=== PATIENT | male | born 1930 | race Caucasian/White ===

== ENCOUNTER 2018-03-22 18:02 | Inpatient (IN) | payer OTHER ==
[~2018-03-22] VITALS: Ht 182.9 cm; Wt 90.8 kg
[~2018-03-22 18:02] MED LIST: ALEN70TA5 PO; AMLO2.5T PO; ATOR40TA78 PO; CALC1TAB84 PO; CLOP75TA PO; FENO145T30 PO; IRBE300T16 PO; MAGN300C PO; METO50TA82 PO; MULT-257 PO; PRAV40TA2 PO; VIT1CAPS10 PO; [UNRECOGNIZED DRUG - OTHER] PO
[2018-03-22] MEDS ORDERED: SODIUM CHLORIDE FLUSH 10ML SYR IVF ONE (19:00)
[2018-03-22 19:04] LABS: BASOPHILS # (AUTO) 0.02 x10^3/uL (0-0.1); BASOPHILS % (AUTO) 0 % (0-1); EOSINOPHILS # (AUTO) 0.23 x10^3/uL (0-0.4); EOSINOPHILS % (AUTO) 2 % (1-7); LYMPHOCYTES # (AUTO) 0.87 x10^3/uL (1-3.4); LYMPHOCYTES % (AUTO) 7 % (22-44); MD NO; MEAN CORPUSCULAR HEMOGLOBIN 33.8 pg (27.5-34.5); MEAN CORPUSCULAR HGB CONC 34.1 g/dL (33.2-36.2); MEAN CORPUSCULAR VOLUME 99.2 fL (81-97); MEAN PLATELET VOLUME 8.3 fL (7.4-10.4); MONOCYTES % (AUTO) 7 % (2-9); NEUTROPHILS # (AUTO) 10.27 x10^3/uL (1.8-6.8); NEUTROPHILS % (AUTO) 84 % (42-75); PLATELET COUNT 185 x10^3/uL (130-400); RED BLOOD COUNT 4.06 x10^6/uL (4.38-5.82); RED CELL DISTRIBUTION WIDTH 17.7 % (9.4-14.8)
[2018-03-22 19:10] LABS: ALBUMIN 3.8 g/dL (3.4-5.0); ANION GAP 8 mmol/L (5-15); CALCIUM 9.2 mg/dL (8.5-10.1); CHLORIDE 102 mmol/L (98-107); CREATININE 1.68 mg/dL (0.7-1.3)
[2018-03-22 19:14] LABS: TROPONIN I < 0.015 ng/mL (0.000-0.045)
[2018-03-22] MEDS ORDERED: POLYETHYLENE GLYCOL 17 GM PACKET PO PRN (20:30)
[2018-03-22] MEDS ORDERED: BISACODYL 10 MG SUPP PR PRN (20:30)
[2018-03-22] MEDS ORDERED: ACETAMINOPHEN 325 MG TABLET PO PRN (20:30)
[2018-03-22] MEDS ORDERED: ALENDRONATE 70 MG TABLET PO SCH (20:30)
[2018-03-22] MEDS ORDERED: ONDANSETRON 2MG/ML, 2ML IVPush PRN (20:30)
[2018-03-22] MEDS: HEPARIN 5,000 UNITS/ML, 1ML SQ SCH (20:30)
[2018-03-22 20:44] VITALS: BP 174/69
[2018-03-22] MEDS: ATORVASTATIN 40 MG TABLET PO SCH (21:00)
[2018-03-22] MEDS: METOPROLOL TARTRATE 50 MG TABLET PO SCH (21:00)
[2018-03-22 21:02] LABS: FOLATE LEVEL > 20.0 ng/mL (3.1-17.5)
[2018-03-22] MEDS: AMLODIPINE 2.5 MG TABLET PO SCH (22:36)
[2018-03-22] MEDS: SODIUM CHLORIDE 0.9% 1,000 ML IV SCH (22:42)
[2018-03-23 01:18] VITALS: BP 139/62
[2018-03-23] MEDS: HEPARIN 5,000 UNITS/ML, 1ML SQ SCH ×4 (04:30→20:50)
[2018-03-23 04:52] LABS: BASOPHILS # (AUTO) 0.01 x10^3/uL (0-0.1); BASOPHILS % (AUTO) 0 % (0-1); EOSINOPHILS # (AUTO) 0.09 x10^3/uL (0-0.4); EOSINOPHILS % (AUTO) 1 % (1-7); LYMPHOCYTES # (AUTO) 0.65 x10^3/uL (1-3.4); LYMPHOCYTES % (AUTO) 8 % (22-44); MD NO; MEAN CORPUSCULAR HEMOGLOBIN 33.1 pg (27.5-34.5); MEAN CORPUSCULAR HGB CONC 33.4 g/dL (33.2-36.2); MEAN CORPUSCULAR VOLUME 99.1 fL (81-97); MONOCYTES # (AUTO) 0.61 x10^3/uL (0.2-0.8); MONOCYTES % (AUTO) 8 % (2-9); NEUTROPHILS # (AUTO) 6.63 x10^3/uL (1.8-6.8); NEUTROPHILS % (AUTO) 83 % (42-75); PLATELET COUNT 157 x10^3/uL (130-400); RED BLOOD COUNT 3.63 x10^6/uL (4.38-5.82); RED CELL DISTRIBUTION WIDTH 17.6 % (9.4-14.8)
[2018-03-23 05:00] LABS: CHLORIDE 106 mmol/L (98-107)
[2018-03-23 05:07] LABS: ALANINE AMINOTRANSFERASE 17 U/L (12-78); ALBUMIN 3.2 g/dL (3.4-5.0); ALKALINE PHOSPHATASE 51 U/L (45-117); ANION GAP 5 mmol/L (5-15); BILIRUBIN,TOTAL 0.9 mg/dL (0.2-1.0); CALCIUM 9.1 mg/dL (8.5-10.1)
[2018-03-23] MEDS: SODIUM CHLORIDE 0.9% 1,000 ML IV SCH (06:16)
[2018-03-23] MEDS ORDERED: GABA300C10 PO (06:35)
[2018-03-23 07:15] VITALS: BP 133/51
[2018-03-23] MEDS: LEVOTHYROXINE 50 MCG TABLET PO SCH (07:34)
[2018-03-23] MEDS: MULTIVITAMIN 1 TABLET PO SCH (07:35)
[2018-03-23] MEDS: AMLODIPINE 2.5 MG TABLET PO SCH ×2 (07:35→20:49)
[2018-03-23] MEDS: IRBESARTAN 300 MG TABLET PO SCH (07:35)
[2018-03-23] MEDS: CALCIUM/VITAMIN D3 250-125 TABLET PO SCH (07:35)
[2018-03-23] MEDS: CLOPIDOGREL 75 MG TABLET PO SCH (07:35)
[2018-03-23] MEDS: MAGNESIUM OXIDE 400 MG TABLET PO SCH (07:35)
[2018-03-23] MEDS: SENNA/DOCUSATE TABLET PO SCH (07:36)
[2018-03-23] MEDS ORDERED: TEMPLATE NON-FORMULARY MED. (Vit C/Vit E/Lutein/Min/Omega-3** (Ocuvite Softgel**) 1 TAB) PO SCH (09:00)
[2018-03-23] MEDS: GABAPENTIN 300 MG CAPSULE PO SCH (11:05)
[2018-03-23 12:55] VITALS: BP 105/52
[2018-03-23] MEDS: GUAIFENESIN 200 MG TABLET PO SCH ×2 (16:20→20:50)
[2018-03-23 19:22] VITALS: BP 125/54
[2018-03-23] MEDS: ATORVASTATIN 40 MG TABLET PO SCH (20:49)
[2018-03-23] MEDS: METOPROLOL TARTRATE 50 MG TABLET PO SCH (20:49)
[2018-03-24 01:37] VITALS: BP 116/60
[2018-03-24 04:40] LABS: BASOPHILS # (AUTO) 0.01 x10^3/uL (0-0.1); BASOPHILS % (AUTO) 0 % (0-1); EOSINOPHILS # (AUTO) 0.11 x10^3/uL (0-0.4); EOSINOPHILS % (AUTO) 1 % (1-7); LYMPHOCYTES # (AUTO) 0.63 x10^3/uL (1-3.4); LYMPHOCYTES % (AUTO) 8 % (22-44); MD NO; MEAN CORPUSCULAR HEMOGLOBIN 32.9 pg (27.5-34.5); MEAN CORPUSCULAR HGB CONC 33.2 g/dL (33.2-36.2); MEAN CORPUSCULAR VOLUME 99.1 fL (81-97); MEAN PLATELET VOLUME 8.2 fL (7.4-10.4); MONOCYTES # (AUTO) 0.64 x10^3/uL (0.2-0.8); MONOCYTES % (AUTO) 8 % (2-9); NEUTROPHILS # (AUTO) 6.44 x10^3/uL (1.8-6.8); NEUTROPHILS % (AUTO) 82 % (42-75); PLATELET COUNT 161 x10^3/uL (130-400); RED BLOOD COUNT 3.68 x10^6/uL (4.38-5.82); RED CELL DISTRIBUTION WIDTH 17.9 % (9.4-14.8)
[2018-03-24 04:44] LABS: ANION GAP 5 mmol/L (5-15); CALCIUM 8.9 mg/dL (8.5-10.1); CHLORIDE 107 mmol/L (98-107)
[2018-03-24 04:57] LABS: CREATININE 1.44 mg/dL (0.7-1.3)
[2018-03-24] MEDS: GUAIFENESIN 200 MG TABLET PO SCH ×3 (05:52→16:05)
[2018-03-24] MEDS: LEVOTHYROXINE 50 MCG TABLET PO SCH (05:52)
[2018-03-24 07:00] VITALS: BP 137/60
[2018-03-24] MEDS: MULTIVITAMIN 1 TABLET PO SCH (08:39)
[2018-03-24] MEDS: CALCIUM/VITAMIN D3 250-125 TABLET PO SCH (08:39)
[2018-03-24] MEDS: AMLODIPINE 2.5 MG TABLET PO SCH (08:39)
[2018-03-24] MEDS: GABAPENTIN 300 MG CAPSULE PO SCH (08:39)
[2018-03-24] MEDS: CLOPIDOGREL 75 MG TABLET PO SCH (08:39)
[2018-03-24] MEDS: SENNA/DOCUSATE TABLET PO SCH (08:40)
[2018-03-24] MEDS: MAGNESIUM OXIDE 400 MG TABLET PO SCH (08:40)
[2018-03-24] MEDS: IRBESARTAN 300 MG TABLET PO SCH (08:40)
[2018-03-24] MEDS: HEPARIN 5,000 UNITS/ML, 1ML SQ SCH (11:08)
[2018-03-24] MEDS ORDERED: DOXYCYCLINE 100MG TABLET PO SCH (13:00)
[2018-03-24 13:53] VITALS: BP 136/49
[2018-03-24] MEDS ORDERED: DOXY100T PO (14:47)
[2018-03-24] MEDS ORDERED: METO50TA82 PO (14:47)
[2018-03-24] MEDS ORDERED: PRED20TA PO (14:47)
[2018-03-25] MEDS ORDERED: ALBU8.5H8 INH (15:18)
== END 2018-03-24 18:05 | disposition home or self-care (01) | DRG 682 ==
LOC: ED 19:45 → EDIP 19:50 → 3NW 20:41
PROVIDERS: ADMIT Internal Medicine; ATTEND Internal Medicine
DX: N17.9 Acute kidney failure, unspecified (principal); J96.01 Acute respiratory failure with hypoxia; J44.1 Chronic obstructive pulmonary disease with (acute) exacerbation; E44.1 Mild protein-calorie malnutrition; Z66 Do not resuscitate; D53.9 Nutritional anemia, unspecified; N18.9 Chronic kidney disease, unspecified; I12.9 Hypertensive chronic kidney disease with stage 1 through stage 4 chronic kidney disease, or unspecified chronic kidney disease; I95.9 Hypotension, unspecified; Z87.891 Personal history of nicotine dependence; Z92.21 Personal history of antineoplastic chemotherapy; Z85.038 Personal history of other malignant neoplasm of large intestine; I25.2 Old myocardial infarction; Z90.49 Acquired absence of other specified parts of digestive tract; Z95.1 Presence of aortocoronary bypass graft; Z95.5 Presence of coronary angioplasty implant and graft; Z68.27 Body mass index [BMI] 27.0-27.9, adult
CPT/HCPCS: 36415; 71045; 71250; 80048; 80053; 82040; 82607; 82746; 83880; 84443; 84484; 85025; 87205; 93005; 99285; J7030; J7512

== ENCOUNTER 2018-04-14 17:16 | Inpatient (IN) | payer OTHER ==
[~2018-04-14] VITALS: Ht 182.9 cm; Wt 84.8 kg
[~2018-04-14 17:16] MED LIST changes: +ALBU8.5H8 INH; +DOXY100T PO; +GABA300C10 PO; +PRED20TA PO
[2018-04-14 18:15] LABS: BASOPHILS # (AUTO) 0.01 x10^3/uL (0-0.1); BASOPHILS % (AUTO) 0 % (0-1); EOSINOPHILS # (AUTO) 0.04 x10^3/uL (0-0.4); EOSINOPHILS % (AUTO) 1 % (1-7); LYMPHOCYTES # (AUTO) 0.47 x10^3/uL (1-3.4); LYMPHOCYTES % (AUTO) 8 % (22-44); MD NO; MEAN CORPUSCULAR HEMOGLOBIN 33.4 pg (27.5-34.5); MEAN CORPUSCULAR HGB CONC 33.4 g/dL (33.2-36.2); MEAN CORPUSCULAR VOLUME 100.1 fL (81-97); MONOCYTES # (AUTO) 0.36 x10^3/uL (0.2-0.8); MONOCYTES % (AUTO) 6 % (2-9); NEUTROPHILS # (AUTO) 4.96 x10^3/uL (1.8-6.8); NEUTROPHILS % (AUTO) 85 % (42-75); PLATELET COUNT 109 x10^3/uL (130-400); RED BLOOD COUNT 3.21 x10^6/uL (4.38-5.82); RED CELL DISTRIBUTION WIDTH 17.4 % (9.4-14.8)
[2018-04-14 18:19] LABS: ANION GAP 5 mmol/L (5-15); CALCIUM 8.7 mg/dL (8.5-10.1); CHLORIDE 109 mmol/L (98-107); CREATININE 1.61 mg/dL (0.7-1.3)
[2018-04-14] MEDS ORDERED: TIOT4MIS3 INH (18:24)
[2018-04-14] MEDS ORDERED: SODIUM CHLORIDE 0.9% 1,000ML IVBOLUS ONE (18:30)
[2018-04-14] MEDS ORDERED: SODIUM CHLORIDE FLUSH 10ML SYR IVF ONE (18:30)
[2018-04-14 18:52] LABS: TROPONIN I 0.017 ng/mL (0.000-0.045)
[2018-04-14] MEDS ORDERED: AZITHROMYCIN 500 MG in SODIUM CHLORIDE 0.9% 250 ML IV ONE (19:00)
[2018-04-14] MEDS ORDERED: CEFTRIAXONE PMX 1GM/50ML 50 ML IV ONE (19:00)
[2018-04-14] MEDS ORDERED: FUROSEMIDE 20 MG/2 ML IV ONE (19:00)
[2018-04-14] MEDS ORDERED: CEFTRIAXONE PMX 1GM/50ML 50 ML ONE (19:31)
[2018-04-14] MEDS ORDERED: FUROSEMIDE 20 MG/2 ML ONE (19:32)
[2018-04-14 19:42] LABS: MICROSCOPIC AUTO
[2018-04-14 19:43] LABS: CULTURE INDICATED? YES
[2018-04-14] MEDS: CEFTRIAXONE PMX 1GM/50ML 50 ML IV SCH (20:51)
[2018-04-14 20:55] VITALS: BP 135/53
[2018-04-14] MEDS ORDERED: ONDANSETRON 2MG/ML, 2ML IVPush PRN (21:00)
[2018-04-14] MEDS ORDERED: GUAIFENESIN/DM 200-20MG, 10ML UDC PO PRN (21:00)
[2018-04-14] MEDS: HEPARIN 5,000 UNITS/ML, 1ML SQ SCH ×2 (21:00→22:02)
[2018-04-14] MEDS ORDERED: POLYETHYLENE GLYCOL 17 GM PACKET PO PRN (21:00)
[2018-04-14] MEDS ORDERED: BISACODYL 10 MG SUPP PR PRN (21:00)
[2018-04-14] MEDS ORDERED: ALBUTEROL SULFATE 2.5 MG/3 ML NPPB PRN (21:30)
[2018-04-14] MEDS: AZITHROMYCIN 500 MG in SODIUM CHLORIDE 0.9% 250 ML IV SCH (21:30)
[2018-04-14] MEDS ORDERED: ALBUTEROL/IPRATROPIUM 2.5MG/0.5MG, 3 ML NPPB PRN (21:30)
[2018-04-14] MEDS: SODIUM CHLORIDE FLUSH 10ML SYR IVF SCH (22:16)
[2018-04-14] MEDS: ATORVASTATIN 40 MG TABLET PO SCH (22:17)
[2018-04-14] MEDS: METOPROLOL TARTRATE 50 MG TABLET PO SCH (22:17)
[2018-04-14] MEDS: AMLODIPINE 2.5 MG TABLET PO SCH (22:17)
[2018-04-15 01:24] VITALS: BP 113/60
[2018-04-15 06:10] LABS: CALCIUM 8.4 mg/dL (8.5-10.1); CHLORIDE 109 mmol/L (98-107)
[2018-04-15 06:16] LABS: ALANINE AMINOTRANSFERASE 22 U/L (12-78); ALBUMIN 2.6 g/dL (3.4-5.0); ALKALINE PHOSPHATASE 41 U/L (45-117); ANION GAP 7 mmol/L (5-15); BILIRUBIN,TOTAL 0.9 mg/dL (0.2-1.0); CREATININE 1.45 mg/dL (0.7-1.3); TOTAL PROTEIN 5.6 g/dL (6.4-8.2)
[2018-04-15 06:19] LABS: BASOPHILS % (AUTO) 0 % (0-1); EOSINOPHILS # (AUTO) 0.01 x10^3/uL (0-0.4); EOSINOPHILS % (AUTO) 0 % (1-7); LYMPHOCYTES # (AUTO) 0.42 x10^3/uL (1-3.4); LYMPHOCYTES % (AUTO) 9 % (22-44); MD SCAN; MEAN CORPUSCULAR HEMOGLOBIN 33.5 pg (27.5-34.5); MEAN CORPUSCULAR HGB CONC 33.4 g/dL (33.2-36.2); MEAN CORPUSCULAR VOLUME 100.1 fL (81-97); MEAN PLATELET VOLUME 8.9 fL (7.4-10.4); MONOCYTES # (AUTO) 0.33 x10^3/uL (0.2-0.8); MONOCYTES % (AUTO) 7 % (2-9); NEUTROPHILS # (AUTO) 4.17 x10^3/uL (1.8-6.8); NEUTROPHILS % (AUTO) 85 % (42-75); PLATELET COUNT 87 x10^3/uL (130-400); RED BLOOD COUNT 2.98 x10^6/uL (4.38-5.82); RED CELL DISTRIBUTION WIDTH 17.5 % (9.4-14.8)
[2018-04-15] MEDS: LEVOTHYROXINE 50 MCG TABLET PO SCH (06:44)
[2018-04-15] MEDS: SODIUM CHLORIDE FLUSH 10ML SYR IVF SCH ×2 (09:00→21:00)
[2018-04-15] MEDS: TEMPLATE NON-FORMULARY MED. (Vit C/Vit E/Lutein/Min/Omega-3** (Ocuvite Softgel**) 1 TAB) PO SCH (09:00)
[2018-04-15 09:15] VITALS: BP 129/56
[2018-04-15] MEDS: CLOPIDOGREL 75 MG TABLET PO SCH (09:31)
[2018-04-15] MEDS: IRBESARTAN 300 MG TABLET PO SCH (09:32)
[2018-04-15] MEDS: AMLODIPINE 2.5 MG TABLET PO SCH ×2 (09:32→20:42)
[2018-04-15] MEDS: MAGNESIUM OXIDE 400 MG TABLET PO SCH (09:32)
[2018-04-15] MEDS: GABAPENTIN 300 MG CAPSULE PO SCH (09:32)
[2018-04-15] MEDS: SENNA/DOCUSATE TABLET PO SCH (09:32)
[2018-04-15] MEDS: CALCIUM/VITAMIN D3 250-125 TABLET PO SCH (09:32)
[2018-04-15] MEDS: MULTIVITAMIN 1 TABLET PO SCH (09:32)
[2018-04-15] MEDS: HEPARIN 5,000 UNITS/ML, 1ML SQ SCH (13:00)
[2018-04-15 13:15] VITALS: BP 135/49
[2018-04-15 20:00] VITALS: BP 127/49
[2018-04-15] MEDS: CEFTRIAXONE PMX 1GM/50ML 50 ML IV SCH (20:41)
[2018-04-15] MEDS: ATORVASTATIN 40 MG TABLET PO SCH (20:41)
[2018-04-15] MEDS: METOPROLOL TARTRATE 50 MG TABLET PO SCH (20:42)
[2018-04-15 20:54] VITALS: BP 131/58
[2018-04-15] MEDS: AZITHROMYCIN 500 MG in SODIUM CHLORIDE 0.9% 250 ML IV SCH (21:32)
[2018-04-16 03:24] VITALS: BP 122/58
[2018-04-16] MEDS: LEVOTHYROXINE 50 MCG TABLET PO SCH (05:21)
[2018-04-16 07:00] VITALS: BP 133/63
[2018-04-16] MEDS ORDERED: SODIUM CHLORIDE NASAL SPRAY 45ML BOTTLE NAS PRN (08:00)
[2018-04-16] MEDS: CALCIUM/VITAMIN D3 250-125 TABLET PO SCH (08:49)
[2018-04-16] MEDS: MULTIVITAMIN 1 TABLET PO SCH (08:49)
[2018-04-16] MEDS: MAGNESIUM OXIDE 400 MG TABLET PO SCH (08:50)
[2018-04-16] MEDS: TAMSULOSIN 0.4 MG CAP.ER.24H PO SCH (08:50)
[2018-04-16] MEDS: CLOPIDOGREL 75 MG TABLET PO SCH (08:50)
[2018-04-16] MEDS: GABAPENTIN 300 MG CAPSULE PO SCH (08:50)
[2018-04-16] MEDS: SENNA/DOCUSATE TABLET PO SCH (08:50)
[2018-04-16] MEDS: AMLODIPINE 2.5 MG TABLET PO SCH ×2 (08:50→20:25)
[2018-04-16] MEDS: SODIUM CHLORIDE FLUSH 10ML SYR IVF SCH ×2 (08:51→20:26)
[2018-04-16] MEDS: IRBESARTAN 300 MG TABLET PO SCH (08:51)
[2018-04-16] MEDS: TEMPLATE NON-FORMULARY MED. (Vit C/Vit E/Lutein/Min/Omega-3** (Ocuvite Softgel**) 1 TAB) PO SCH (08:52)
[2018-04-16] MEDS ORDERED: ALENDRONATE 70 MG TABLET PO SCH (09:00)
[2018-04-16] MEDS: ACETAMINOPHEN 325 MG TABLET PO PRN ×2 (15:12→22:30)
[2018-04-16 19:15] VITALS: BP 124/54
[2018-04-16] MEDS: METOPROLOL TARTRATE 50 MG TABLET PO SCH (20:25)
[2018-04-16] MEDS: CEFTRIAXONE PMX 1GM/50ML 50 ML IV SCH (20:25)
[2018-04-16] MEDS: ATORVASTATIN 40 MG TABLET PO SCH (20:25)
[2018-04-16] MEDS: AZITHROMYCIN 500 MG in SODIUM CHLORIDE 0.9% 250 ML IV SCH (21:36)
[2018-04-17 02:20] VITALS: BP 112/52
[2018-04-17] MEDS: LEVOTHYROXINE 50 MCG TABLET PO SCH (05:31)
[2018-04-17] MEDS: ACETAMINOPHEN 325 MG TABLET PO PRN ×2 (05:31→12:55)
[2018-04-17 07:05] VITALS: BP 123/57
[2018-04-17] MEDS: TEMPLATE NON-FORMULARY MED. (Vit C/Vit E/Lutein/Min/Omega-3** (Ocuvite Softgel**) 1 TAB) PO SCH (08:38)
[2018-04-17] MEDS: IRBESARTAN 300 MG TABLET PO SCH (08:49)
[2018-04-17] MEDS: TAMSULOSIN 0.4 MG CAP.ER.24H PO SCH (08:49)
[2018-04-17] MEDS: SENNA/DOCUSATE TABLET PO SCH (08:49)
[2018-04-17] MEDS: GABAPENTIN 300 MG CAPSULE PO SCH (08:49)
[2018-04-17] MEDS: AMLODIPINE 2.5 MG TABLET PO SCH (08:49)
[2018-04-17] MEDS: MULTIVITAMIN 1 TABLET PO SCH (08:49)
[2018-04-17] MEDS: MAGNESIUM OXIDE 400 MG TABLET PO SCH (08:49)
[2018-04-17] MEDS: CALCIUM/VITAMIN D3 250-125 TABLET PO SCH (08:49)
[2018-04-17] MEDS: CLOPIDOGREL 75 MG TABLET PO SCH (08:49)
[2018-04-17] MEDS: SODIUM CHLORIDE FLUSH 10ML SYR IVF SCH (08:51)
[2018-04-17] MEDS ORDERED: CEFD300C37 PO (10:26)
[2018-04-17] MEDS ORDERED: GUAI1TBM11 PO (10:26)
[2018-04-17] MEDS ORDERED: AZIT500T5 PO (10:26)
[2018-04-17] MEDS ORDERED: TAMS-11 PO (10:26)
[2018-04-17] MEDS: CEFTRIAXONE PMX 1GM/50ML 50 ML IV SCH (11:35)
[2018-04-17] MEDS: AZITHROMYCIN 500 MG in SODIUM CHLORIDE 0.9% 250 ML IV SCH (12:22)
[2018-04-17 12:40] VITALS: BP 141/42
[2018-04-17] MEDS ORDERED: CEFTRIAXONE 1,000 MG in SODIUM CHLORIDE 0.9% 50 ML IV SCH (21:00)
== END 2018-04-17 15:29 | disposition home or self-care (01) | DRG 193 ==
LOC: ED 18:57 → EDIP 19:59 → 4WST 20:37
PROVIDERS: ADMIT Internal Medicine; ATTEND Internal Medicine
DX: J18.9 Pneumonia, unspecified organism (principal); E43 Unspecified severe protein-calorie malnutrition; J96.01 Acute respiratory failure with hypoxia; D69.6 Thrombocytopenia, unspecified; I10 Essential (primary) hypertension; E86.0 Dehydration; I25.10 Atherosclerotic heart disease of native coronary artery without angina pectoris; D53.9 Nutritional anemia, unspecified; Z66 Do not resuscitate; I25.2 Old myocardial infarction; Z85.038 Personal history of other malignant neoplasm of large intestine; Z87.442 Personal history of urinary calculi; Z87.891 Personal history of nicotine dependence; Z90.49 Acquired absence of other specified parts of digestive tract; Z92.21 Personal history of antineoplastic chemotherapy; Z95.1 Presence of aortocoronary bypass graft; Z95.5 Presence of coronary angioplasty implant and graft; Z99.81 Dependence on supplemental oxygen; Z79.899 Other long term (current) drug therapy; Z79.02 Long term (current) use of antithrombotics/antiplatelets; Z68.25 Body mass index [BMI] 25.0-25.9, adult
CPT/HCPCS: 36415; 71046; 80048; 80053; 81001; 82040; 83605; 83880; 84145; 84484; 85025; 87040; 87070; 87086; 87205; 93005; 96361; 96365; 96375; J0456; J0696; J1940; J7030; J7050

== ENCOUNTER → 2018-05-13 | Outpatient (CLI) | payer OTHER ==
[~2018-05-13] MED LIST changes: +AZIT500T5 PO; +CEFD300C37 PO; +GUAI1TBM11 PO; +TAMS-11 PO; +TIOT4MIS3 INH
== END | disposition home or self-care (01) ==
LOC: CFH 08:03
PROVIDERS: ATTEND Internal Medicine
DX: R91.8 Other nonspecific abnormal finding of lung field (principal); R06.02 Shortness of breath; I10 Essential (primary) hypertension; I25.10 Atherosclerotic heart disease of native coronary artery without angina pectoris
CPT/HCPCS: 71250